=== PATIENT | male | born 1985 | race Caucasian/White ===

== ENCOUNTER 2020-03-01 17:50 | Emergency (ER) | payer MEDICAID, SELFPAY ==
--- NOTE | ~2020-03-01 | XR_ITS ---
XR hand RT min 3V DATE: 03/01/2020 18:37 INDICATION: Fall yesterday. Pain from distal third digit through hand TECHNIQUE: 3 views COMPARISON: None FINDINGS: No fracture or dislocation, periosteal reaction or bone destruction. Joint spaces are prese rved. No erosive changes. IMPRESSION: Negative Reviewed, dictated and finalized at location A. IMPRESSION: Negative
[2020-03-01 17:52] VITALS: BP 142/92; PULSE 94; RESP 18; TEMP 36.4; O2SAT 99
--- NOTE | 2020-03-01 18:46 | ED.GENADULT ---
HPI - General Adult General Chief complaint: Extremity Injury, Upper <Cahs Schwarz PA-C - Last Filed: 03/01/20 19:02> Stated complaint: hand injury <Chas Schwarz PA-C - Last Filed: 03/01/20 19:02> Time Seen by Provider: 03/01/20 17:52 <Chas Schwarz PA-C - Last Filed: 03/01/20 19:02> Source: patient <ELIAZAR Coulter Last Filed: 03/01/20 19:02> Mode of arrival: ambulatory <Chas Schwarz PA-C - Last Filed: 03/01/20 19:02> Limitations: no limitations <Chas Schwarz PA-C - Last Filed: 03/01/20 19:02> History of Present Illness HPI narrative: Patient is a 34-year-old male who presents to emergency department for evaluation of right hand pain noting pain over the dorsal surface of the right hand patient sustained a ground-level fall yesterday injuring the right hand wrist history of prior fracture with orthopedic repair patient notes an aching pain over the dorsal mid hand. Patient also notes that he sprayed himself with a power shovel mechanic along the radial aspect of the right wrist where he has superficial abrasion. Patient notes his tetanus to be up-to-date <Chas Schwarz PA-C - Last Filed: 03/01/20 19:02> Related Data Home medications: Home Medications Medication Instructions Recorded Confirmed No Home Medications 03/01/20 03/01/20 <Chas Schwarz PA-C - Last Filed: 03/01/20 19:02> Allergies/adverse reactions: Allergies Allergy/AdvReac Type Severity Reaction Status Date / Time No Known Allergies Allergy Unverified 03/01/20 17:55 <Chas Schwarz PA-C - Last Filed: 03/01/20 19:02> Review of Systems Review of Systems: All systems reviewed & are unremarkable except as noted in HPI and below <Chas Schwarz PA-C - Last Filed: 03/01/20 19:02> [facility] Surgical History Surgical History: Surgical History History of orthopedic surgery <Chas Schwarz PA-C - Last Filed: 03/01/20 19:02> Family History Family History: Family History (Updated 02/20/14 @ 07:13 by DOCTOR UNKNOWN) Father Family history of heart disease in male family member before age 55 <Chas Schwarz PA-C - Last Filed: 03/01/20 19:02> Social History Social History: Social History Smoking status: Never smoker Alcohol intake: current Gender identity (if verbalized by the patient): Male <Chas Schwarz PA-C - Last Filed: 03/01/20 19:02> Exam Narrative: Exam Narrative: GENERAL: Well-appearing, well-nourished, and in no acute distress. HEAD: Normocephalic, atraumatic. EYES: PERRLA and EOMI. ENT: Nares clear, no rhinorrhea or epistaxis. Mucous membranes moist. EXTREMITIES: Normal range of motion. No edema. Tenderness over the dorsal surface of the right hand with no swelling or deformity noted SKIN: Warm, dry, no rash. Patient with abrasion along the radial aspect of the right wrist joint that is superficial and scabbed with slightly erythematous margins no streaking or cellulitic changes NEURO: No focal deficits. Alert and oriented x3. Neurovascularly intact. Capillary refill less than 2 seconds PSYCH: Normal mood and affect. <Chas Schwarz PA-C - Last Filed: 03/01/20 19:02> Course Course Emergency Course: Patient in the room in no distress aware of case findings treatment plan and diagnosis agreeing to follow-up as directed felt appropriate for outpatient reevaluation <Chas Schwarz PA-C - Last Filed: 03/01/20 19:02> Vital Signs Vital signs: Vital Signs Temperature 36.4 C 03/01/20 17:52 Pulse Rate 94 03/01/20 17:52 Respiratory Rate 18 03/01/20 17:52 Blood Pressure 142/92 H 03/01/20 17:52 Pulse Oximetry 99 03/01/20 17:52 Temperature 36.4 C 03/01/20 17:52 Pulse Rate 94 03/01/20 17:52 Respiratory Rate 18 03/01/20 17:52 Blood Pressure 142/92 H 03/01/20 1
== END 2020-03-01 19:15 | disposition home or self-care (01) ==
PROVIDERS: Emergency Provider Emergency Medicine
DX: S60.221A Contusion of right hand, initial encounter (principal); S60.811A Abrasion of right wrist, initial encounter; W22.8XXA Striking against or struck by other objects, initial encounter; W19.XXXA Unspecified fall, initial encounter
CPT/HCPCS: 73130; 99283

== ENCOUNTER 2021-08-17 12:47 | Emergency (ER) | payer OTHER, MEDICAID, SELFPAY ==
--- NOTE | ~2021-08-17 | XR_ITS ---
EXAMINATION: XR chest 1V portable DATE: 08/17/2021 15:29 INDICATION: Cough, fever, congestion and backache. TECHNIQUE: frontal view of the chest was obtained. COMPARISON: None FINDINGS: The lungs are clear with no focal airspace opacities, pulmonary edema, pleural effusion or pneumothor ax. The cardiomediastinal silhouette is normal. Visualized bones and soft tissues are unremarkable. IMPRESSION: 1. No acute cardiopulmonary disease. Reviewed, dictated and finalized at location A. 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
[2021-08-17 13:20] VITALS: BP 149/99; PULSE 109; RESP 17; TEMP 36.9; O2SAT 99
[2021-08-17 14:48] VITALS: BP 138/107; PULSE 115; RESP 22; TEMP 36.9; O2SAT 99
[2021-08-17 14:49] VITALS: RESP 22; O2SAT 99
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
[2021-08-17] MEDS: KETOROLAC 30 MG/ML VIAL (*BKC) IV PUSH (15:29)
[2021-08-17] MEDS: SODIUM CHLORIDE 0.9% IV 1,000 ML 999 ML IV CONT (15:31)
[2021-08-17 16:38] LABS: Influenza A QL RT-PCR Negative (Negative); Influenza B QL RT-PCR Negative (Negative); SARS-CoV-2 RNA PCR Negative
[2021-08-17 16:51] VITALS: BP 131/90; PULSE 96; RESP 16; O2SAT 96
== END 2021-08-17 17:34 | disposition home or self-care (01) ==
PROVIDERS: Emergency Provider Emergency Medicine
DX: B34.9 Viral infection, unspecified (principal); Z20.822 Contact with and (suspected) exposure to COVID-19
CPT/HCPCS: 71045; 87502; 96361; 96374; 99284; C9803; J1885; J7030; U0003; U0005

== ENCOUNTER 2021-11-28 11:16 | Emergency (ER) | payer OTHER, MEDICAID, SELFPAY ==
--- NOTE | ~2021-11-28 | CT_ITS ---
EXAMINATION: CT abdomen pelvis wo con DATE: 11/28/2021 11:47 INDICATION: Left flank and testicular pain TECHNIQUE: Computed tomography (CT) of the abdomen and pelvis was performed without intravenous contr ast. The dose-length product (DLP) was 634.54 mGy-cm. Automated exposure control and iterative recons truction technique were employed. COMPARISON: None FINDINGS: The lung bases are clear. The heart size is normal. The liver, spleen, pancreas, gallbladde r, and adrenal glands are normal. There is a horseshoe kidney. There are punctate nonobstructing ston es scattered throughout the kidney which measure up to 2 mm. There is a 3 mm stone at the left ureter ovesicular junction which causes mild hydroureteronephrosis. No pathologically enlarged abdominal or pelvic lymph nodes are identified. There is no free intraperitoneal gas or evidence of bowel obstruct ion. The appendix is normal. There is mild lower lumbar spondylosis. IMPRESSION: 1. 3 mm stone at the left ureterovesicular junction causing mild hydroureteronephrosis. 2. Horseshoe kidney with scattered punctate nonobstructing nephrolithiasis. Reviewed, dictated and finalized at location A. IMPRESSION: 1. 3 mm stone at the left ureterovesicular junction causing mild hydroureterone phrosis. 2. Horseshoe kidney with scattered punctate nonobstructing nephrolithiasis.
--- NOTE | ~2021-11-28 | XR_ITS ---
EXAMINATION: XR abdomen/kub 1V INDICATION: Left flank pain TECHNIQUE: Supine views of the abdomen were obtained on 2 radiographs. COMPARISON: CT from today FINDINGS: There is a 3 mm stone at the expected location of the left ureterovesicular junction. A hor seshoe kidney is noted. The bowel gas pattern is normal. The visualized osseous structures are unrema rkable. IMPRESSION: 1. 3 mm stone at the left ureterovesicular junction. Reviewed, dictated and finalized at location A.
[2021-11-28 11:21] VITALS: BP 152/90; PULSE 66; RESP 17; TEMP 36.2; O2SAT 99
--- NOTE | 2021-11-28 11:33 | ED.BACK ---
HPI - Back Pain/Injury General Chief Complaint: Back Pain/Injury Stated Complaint: testicular pain, back pain Time Seen by Provider: 11/28/21 11:28 Source: patient Mode of arrival: ambulatory Limitations: no limitations History of Present Illness HPI Narrative: 36-year-old male presents today with complaints of left flank pain radiating down to his left testicle that started about 2 hours ago. Patient also endorses nausea. Patient denies vomiting, abdominal pain, diarrhea. Patient also denies history of kidney stones or family history of kidney stones. Patient states testicle is not swollen or erythemic. Related Data Allergies Allergy/AdvReac Type Severity Reaction Status Date / Time No Known Allergies Allergy Verified 11/28/21 11:24 Review of Systems Review of Systems: CONSTITUTIONAL: Denies fever, chills, or sweats. EYES: Denies visual changes, redness, or discharge. ENT: Denies rhinorrhea, congestion, sore throat, or otalgia. CARDIOVASCULAR: Denies chest pain, palpitations, or edema. RESPIRATORY: Denies cough or dyspnea. GASTROINTESTINAL: Nausea. Denies abdominal pain, vomiting, or diarrhea. GENITOURINARY: Left flank pain radiating to left testicle. Denies dysuria or hematuria. SKIN: Denies rash or itching. MUSCULOSKELETAL: Left flank pain. Denies joint pain, or myalgia. NEUROLOGIC: Denies headache, numbness, dizziness, or weakness. PSYCHIATRIC: Denies anxiety or depression. [facility] Past Medical History Medical History BMI 30.0-30.9,adult Chronic back pain Surgical History Surgical History History of orthopedic surgery Hx of tonsillectomy Family History Family History Father Family history of heart disease in male family member before age 55 Acute myocardial infarction Hypertension Tobacco abuse Mother No problems noted. Sibling No problems noted. 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 EYES: PERRLA and EOMI. NECK: Supple. No adenopathy or masses. No carotid bruits or JVD CHEST: Clear to auscultation. No respiratory distress. No wheezes rales or rhonchi HEART: Regular rate and rhythm. No murmur heard. Normal peripheral pulses. ABDOMEN: Soft, nontender, nondistended, normal active bowel sounds. EXTREMITIES: Normal range of motion. No edema. SKIN: Warm, dry, no rash. NEURO: No focal deficits. Alert and oriented x3. PSYCH: Normal mood and affect. Course Course Emergency Course: Patient with tolerable pain level after morphine. Pain 12/03. Discussed ct with patient and he is aware of the 3mm kidney stone. Patient encourage to push fluids. Pain medication as needed and to follow up with urology. Vital Signs Vital signs: Vital Signs Temperature 36.2 C L 11/28/21 11:21 Pulse Rate 66 11/28/21 11:21 Respiratory Rate 17 11/28/21 11:21 Blood Pressure 152/90 H 11/28/21 11:21 Pulse Oximetry 99 11/28/21 11:21 Temperature 36.2 C L 11/28/21 11:21 Pulse Rate 86 11/28/21 13:31 Respiratory Rate 16 11/28/21 13:31 Blood Pressure 142/92 H 11/28/21 13:31 Pulse Oximetry 98 11/28/21 13:31 MDM - Back Pain/Injury MDM Narrative Medical decision making narrative: 36-year-old male HPI as noted. Patient without history of renal calculi in the past presented with left flank and left testicular pain. X-ray and
[2021-11-28] MEDS: SODIUM CHLORIDE 0.9% IV 1,000 ML 999 ML IV CONT (11:53)
[2021-11-28] MEDS: ONDANSETRON INJ 4 MG/2 ML VIAL IV PUSH (11:54)
[2021-11-28] MEDS: fentaNYL CITRATE INJ (*CRX) 100 MCG/2 ML VIAL 50 MCG IV PUSH (11:54)
[2021-11-28 12:02] LABS: Basophils Percent Auto 0.4 % (0.2-1.2); Eosinophils Absolute Auto 0.1 K/mm3 (0-0.3); Eosinophils Percent Auto 0.7 % (0-4.4); Hematocrit 45.8 % (42.0-52.0); Hemoglobin 15.2 g/dL (14.0-18.0); Immature Granulocyte Absolute 0.02 K/mm3 (0.00-0.031); Immature Granulocyte Percent A 0.2 % (0-0.5); Lymphocytes Absolute Auto 2.27 K/mm3 (0.9-3.2); Mean Corpuscular HGB Conc 33.2 g/dl (32-36); Mean Corpuscular Hemoglobin 26.9 pg (26-34); Mean Corpuscular Volume 81.1 fl (80-100); Mean Platelet Volume 10.5 fl (7.4-10.4); Monocytes Absolute Auto 0.5 K/mm3 (0.1-0.6); Neutrophils Absolute Auto 5.2 K/mm3 (1.3-6.7); Neutrophils Percent Auto 64.7 % (45.5-73.1); Platelet Count Result 226 k/mm3 (150-375); Red Blood Count 5.65 M/mm3 (4.6-6.20); Red Cell Distribution Width 13.8 % (11.5-14.5); White Blood Count 8.1 K/mm3 (4.5-10.0)
[2021-11-28 12:05] LABS: Appearance Urine Clear (Clear); Bilirubin Urine 1+ (Negative); Blood Urine 1+ (Negative); Color Urine Yellow (Yellow); Glucose Urine UA Negative (Negative); Ketones Urine 1+ mg/dL (Negative); Leukocyte Esterase Ur Negative LEU/UL (Negative); Nitrate Urine Negative (Negative); Protein Urine Trace mg/dL (Negative); Specific Grav Ur >= 1.030 (1.001-1.035); Urobilinogen Urine 0.2 mg/dL (<2.0); pH Urine 5.5 (5.0-9.0)
[2021-11-28 12:12] LABS: Alanine Aminotransferase 25 U/L (6-50); Albumin Level 5.3 g/dL (3.5-5.1); Alkaline Phosphatase 82 U/L (38-126); Anion Gap 12 mmol/L (8-16); Aspartate Amino Transferase 26 U/L (17-59); Bilirubin,Total 0.5 mg/dL (0.2-1.3); Blood Urea Nitrogen 19 mg/dL (9-20); Calcium 9.6 mg/dL (8.4-10.2); Carbon Dioxide 20 mmol/L (22-30); Chloride 104 mmol/L (98-107); Estimated CRCL calculation 90 ml/min; Estimated Glomerular Filt Rate > 60; Glucose 133 mg/dL (65-110); Potassium 3.2 mmol/L (3.4-5.0); Sodium 136 mmol/L (137-145)
[2021-11-28] MEDS: KETOROLAC 30 MG/ML VIAL (*BKC) IV PUSH (12:17)
[2021-11-28 12:20] VITALS: BP 166/94; PULSE 73; RESP 14; O2SAT 100
[2021-11-28 12:21] LABS: Bacteria Urine Trace /hpf; Mucus Urine Rare /lpf; Squamous Epithelial Cell Urine Rare /hpf (Few); WBC Urine 0-3 /hpf
[2021-11-28] MEDS: POTASSIUM CHLORIDE 20 MEQ TABLET 40 MEQ PO (12:35)
[2021-11-28] MEDS: TAMSULOSIN HCL 0.4 MG CAPSULE PO (12:35)
[2021-11-28 12:43] LABS: Add Urine Microscopic? YES
[2021-11-28] MEDS: MORPHINE SULFATE (*CRX) 2 MG/ML INJ IV PUSH (12:57)
[2021-11-28 13:31] VITALS: BP 142/92; PULSE 86; RESP 16; O2SAT 98
== END 2021-11-28 13:32 | disposition home or self-care (01) ==
PROVIDERS: Emergency Medicine; Emergency Provider Nurse Practitioner Family; PCP Family Medicine
DX: N13.2 Hydronephrosis with renal and ureteral calculous obstruction (principal); F17.220 Nicotine dependence, chewing tobacco, uncomplicated; Q63.1 Lobulated, fused and horseshoe kidney
CPT/HCPCS: 36415; 74018; 74176; 80053; 81001; 85025; 96361; 96374; 96375; 99284; A9270; J1885; J2270; J2405; J3010; J7030